=== PATIENT | female | born 1950 | race Caucasian/White ===

== ENCOUNTER → 2018-10-16 | Outpatient (CLI) | payer MEDICARE ==
--- NOTE | 2018-10-16 11:11 | Diagnostic Imaging Report ---
INDICATION: Low back pain, fall one month ago. TIME OF EXAM: 10:19 a.m. AP, both oblique as well as lateral and coned lumbosacral views of lumbar spine were obtained. Curvature and alignment of the lumbar spine is normal. Vertebral body heights and disc spaces are well-maintained. No fracture or subluxation is identified. No spondylolysis or spondylolisthesis seen. IMPRESSION: No acute bony abnormality is detected. Dictated by: Dictated on workstation # [id number]
== END ==
LOC: RAD FS 10:15
PROVIDERS: ATTEND Nurse Practitioner
DX: M54.5 Low back pain (principal); W19.XXXA Unspecified fall, initial encounter
CPT/HCPCS: 72110

== ENCOUNTER → 2018-10-24 | Outpatient (CLI) | payer MEDICARE ==
--- NOTE | 2018-10-24 10:36 | Diagnostic Imaging Report ---
PROCEDURE: MRI lumbar spine. TECHNIQUE: Multiplanar, multisequence MRI of the lumbar spine was performed without contrast. INDICATION: Low back pain as well as left leg pain and numbness. COMPARISON: No prior MRI studies are available for comparison. FINDINGS: Curvature and alignment of the lumbar spine is normal. Vertebral body heights are maintained. The marrow signal intensity is normal. No compression fracture or geographic marrow lesion is seen. There is fairly normal height and signal intensity to the lumbar intervertebral discs. Minimal degenerative change at L3-4 as well as L2-3 levels is noted with mild disc desiccation. The patient has a split spinal cord which commences at the L1 level. A thin hypointense septation extends posteriorly from the L2-3 level, splitting the thecal sac and duplicated spinal cord. The spinal cord also appears to be tethered, with the conus at approximately the L4-5 level. No definite vertebral body anomaly is seen. No spinal cord lipoma is detected. T12-L1: No central canal or neural foraminal stenosis is detected. L1-2: No central canal or neural foraminal stenosis is identified. L2-3: No central canal or neural foramina stenosis is identified. L3-4: No central canal or neural foraminal stenosis is identified. L4-5: No central canal or neural foraminal stenosis is identified. L5-S1: There is a large left-sided synovial cyst arising from left-sided facets. This measures 19 mm cephalocaudal by 9 mm AP by 12 mm transverse. This produces significant narrowing of the left lateral recess, likely impinging upon the left S1 nerve root origin. Paraspinous tissues are unremarkable. IMPRESSION: 1. 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 There is a thin septation splitting the cord and thecal sac at the L2-[address] study could be performed to evaluate whether this is osseous versus fibrous, if clinically indicated. No spinal vertebral body anomaly or evidence of spinal cord lipoma is detected. 2. Large synovial cyst arising from left-sided facet at the L5-S1 level, significantly narrowing the left lateral recess and neural foramen impinging upon the left S1 nerve root origin. Dictated by: Dictated on workstation # [id number]
== END ==
LOC: RAD 08:53
PROVIDERS: ATTEND Nurse Practitioner
DX: M48.07 Spinal stenosis, lumbosacral region (principal); M71.38 Other bursal cyst, other site
CPT/HCPCS: 72148

== ENCOUNTER → 2019-02-04 | Outpatient (CLI) | payer MEDICARE ==
--- NOTE | 2019-02-04 10:17 | Diagnostic Imaging Report ---
PROCEDURE: MRI lumbar spine. TECHNIQUE: Multiplanar, multisequence MRI of the lumbar spine was performed without contrast. INDICATION: Spinal surgery in November, now complaining of left foot drop. COMPARISON: Correlation is made with prior MRI lumbar spine study from 10/24/2018. FINDINGS: Curvature and alignment of the lumbar spine remains within normal limits. Vertebral body heights and marrow signal are normal. Fairly normal height and signal intensity to the lumbar discs is seen apart from mild desiccation at the L2-3 level, similar to prior exam. Diastematomyelia commencing at the L1 level is again seen. The hypointense septation dividing the thecal sac and spinal cord at the L2-3 level is again seen. The patient has undergone spinal surgery with apparent left hemilaminectomy at L5-S1. Previously seen synovial cyst at L5-S1 is not well-seen on today's study. There does appear to be some infiltration of the fat surrounding the left L5-S1 nerve root, narrowing the left L5-S1 neural foramen. The right neuroforamen is patent. The central canal is patent at all levels. IMPRESSION: 1. Postsurgical changes at the L5-S1 level. Previously noted left-sided synovial cyst is no longer visualized. However, there is infiltration of the fat in the left L5-S1 neural foramen. This could be fibrotic tissue. 2. Diastematomyelia, similar to examination from October 2018. Dictated by: Dictated on workstation # [id number]
== END ==
LOC: RAD 09:16
PROVIDERS: ATTEND Orthopaedic Surgery Orthopaedic Surgery of the Spine
DX: M48.061 Spinal stenosis, lumbar region without neurogenic claudication (principal); M48.8X7 Other specified spondylopathies, lumbosacral region; Q06.2 Diastematomyelia; M21.372 Foot drop, left foot; Z98.890 Other specified postprocedural states
CPT/HCPCS: 72148

== ENCOUNTER → 2019-12-01 | Outpatient (CLI) | payer MEDICARE ==
--- NOTE | 2019-12-01 15:17 | Diagnostic Imaging Report ---
PROCEDURE: MRI lumbar spine. TECHNIQUE: Multiplanar, multisequence MRI of the lumbar spine was performed without contrast. INDICATION: Status post lumbar spine surgery in September 2018. Patient now has left foot drop. COMPARISON: 02/04/2019. FINDINGS: The curvature and alignment of the lumbar spine remain within normal limits. The vertebral body heights and marrow signal are unremarkable. No geographic marrow lesion or fracture is seen. There is fairly normal height and signal intensity to the lumbar intervertebral discs apart from mild disc space narrowing and desiccation at the L2-L3 level, similar to the prior exam. The previously noted diastematomyelia commencing at L1 is again noted. The previously noted hypointense band dividing the thecal sac and spinal cord at the L2-3 level is again noted and unchanged. T12-L1: Central canal and neuroforamina are patent. L1-2: Central canal and neuroforamina are widely patent. L2-3: Central canal and neuroforamina are widely patent. L3-4: Central canal and neuroforamina are widely patent. L4-5: Central canal and neuroforamina appear patent. L5-S1: Central canal is widely patent. There continues to be some mild infiltration of fat in the left neural foramen, similar to the prior exam. Right neuroforamen is patent. Post surgical changes at the L5-S1 level are again noted. IMPRESSION: Overall stable MRI of the lumbar spine without contrast when compared with the prior study from 02/04/2019. No new abnormality is detected. Dictated by: Dictated on workstation # [id number]
== END ==
LOC: RAD 13:33
PROVIDERS: ATTEND Physician Assistant
DX: M54.5 Low back pain (principal); Z98.890 Other specified postprocedural states
CPT/HCPCS: 72148

== ENCOUNTER → 2021-02-21 | Outpatient (CLI) | payer SELFPAY ==
--- NOTE | 2021-02-21 14:27 | Diagnostic Imaging Report ---
EXAMINATION: CT calcium scoring without contrast. TECHNIQUE: Multiple contiguous axial images were obtained through the chest without the use of intravenous contrast for purposes of calcium scoring. All CT scans use one or more of the following dose optimizing techniques: automated exposure control, MA and/or KvP adjustment based on patient size and exam type or iterative reconstruction. HISTORY: Hyperlipidemia. COMPARISON: None available. FINDINGS: The calculated coronary artery calcium score is zero. The automatic score is 5.2, but this is because it included an area of streak artifact as a calcification. There is no edema or pneumonia. No pleural effusion. No pneumothorax. No suspicious nodules. Heart size is normal. No pericardial effusion. Aorta is normal in caliber. There is no axillary or supraclavicular lymphadenopathy. There is no mediastinal lymphadenopathy. Limited views of the upper abdomen are unremarkable. There are no suspicious osseous lesions. IMPRESSION: 1. Calculated coronary artery calcium score of zero. Dictated by: Dictated on workstation # [id number]
== END ==
LOC: RAD FS 10:42
PROVIDERS: ATTEND Family Medicine
DX: E78.5 Hyperlipidemia, unspecified (principal)
CPT/HCPCS: 75571

== ENCOUNTER 2021-08-05 01:41 | Emergency (ER) | payer MEDICARE ==
[~2021-08-05] VITALS: Ht 154.9 cm; Wt 51.2 kg
[2021-08-05] MEDS ORDERED: FAMOTIDINE 20MG/2ML IV (PEPCID) IV STA (01:49)
[2021-08-05] MEDS ORDERED: KETOROLAC 30 MG/ML VIAL IVP STA (01:49)
[2021-08-05] MEDS ORDERED: METOCLOPRAMIDE INJ 10 MG/2 ML (REGLAN) IVP STA (01:49)
--- NOTE | 2021-08-05 01:51 | ED Abdominal Pain ---
General Stated Complaint: ABD PAIN History of Present Illness Date Seen by Provider: Aug 05, 2021 Time Seen by Provider: 01:45 Initial Comments 71-year-old female presents with abdominal pain. She is got some nausea and had a couple episodes of vomiting. She reports her pain started around 9:30 in the evening. She reports that the only thing she is tried for it is some FiberCon. Patient reports that she has a history of having "irritable bowel syndrome" that she treats with FiberCon. She has not had a flare in a while. She reports that she has had normal stool. She denies any fever, chills. The pain is located in the right lower quadrant. She denies any urinary symptoms. Allergies and Home Medications Allergies Coded Allergies: morphine (Verified Allergy, Unknown, 08/05/21) vancomycin (Verified Allergy, Unknown, 08/05/21) Patient Home Medication List Home Medication List Reviewed: Yes Review of Systems Review of Systems Constitutional: No chills, No fever Respiratory: Denies Cough, Denies Shortness of Air Cardiovascular: Denies Chest Pain, Denies Palpitations Gastrointestinal: Abdominal Pain; Denies Constipated, Denies Diarrhea; Nausea, Vomiting Genitourinary: Denies Burning; Flank Pain (Mild occasional right-sided) Musculoskeletal: no symptoms reported Skin: no symptoms reported Psychiatric/Neurological: No Symptoms Reported Endocrine: No Symptoms Reported Physical Exam Vital Signs Vital Signs - First Documented 08/05/21 01:42 Temp 37.0 Pulse 70 Resp 16 B/P (MAP) 111/58 (75) Pulse Ox 100 O2 Delivery Room Air Capillary Refill : Height/Weight/BMI Height: '" Weight: lbs. oz. kg; BMI Method: General Appearance: other (Patient cries out in pain within can stop right and middle and visit with no signs of distress while she is visiting or answering questions) Respiratory: lungs clear, normal breath sounds Cardiovascular: normal peripheral pulses, regular rate, rhythm Gastrointestinal: soft; No distended, No guarding, No rebound; tenderness (Mild tenderness right side) Neurologic/Psychiatric: alert, normal mood/affect, oriented x 3 Skin: normal color, warm/dry Focused Exam Lactate Level 08/05/21 02:00: Lactic Acid Level 1.74 Lactic Acid Level Laboratory Tests Test 08/05/21 02:00 Lactic Acid Level 1.74 MMOL/L (0.50-2.00) Progress/Results/Core Measures Results/Orders Lab Results Laboratory Tests Test 08/05/21 01:45 08/05/21 02:00 08/05/21 02:24 Range/Units White Blood Count 9.7 4.3-11.0 10^3/uL Red Blood Count 4.01 3.80-5.11 10^6/uL Hemoglobin 12.9 11.5-16.0 g/dL Hematocrit 39 35-52 % Mean Corpuscular Volume 96 80-99 fL Mean Corpuscular Hemoglobin 32 25-34 pg Mean Corpuscular Hemoglobin Concent 33 32-36 g/dL Red Cell Distribution Width 12.3 10.0-14.5 % Platelet Count 366 130-400 10^3/uL Mean Platelet Volume 8.9 L 9.0-12.2 fL Immature Granulocyte % (Auto) 0 % Neutrophils (%) (Auto) 68 42-75 % Lymphocytes (%) (Auto) 22 12-44 % Monocytes (%) (Auto) 8 0-12 % Eosinophils (%) (Auto) 1 0-10 % Basophils (%) (Auto) 1 0-10 % Neutrophils # (Auto) 6.6 1.8-7.8 X 10^3 Lymphocytes # (Auto) 2.1 1.0-4.0 X 10^3 Monocytes # (Auto) 0.8 0.0-1.0 X 10^3 Eosinophils # (Auto) 0.1 0.0-0.3 10^3/uL Basophils # (Auto) 0.1 0.0-0.1 10^3/uL Immature Granulocyte # (Auto) 0.0 0.0-0.1 10^3/uL Sodium Level 138 135-145 MMOL/L Potassium Level 4.2 3.6-5.0 MMOL/L Chloride Level 103 98-107 MMOL/L Carbon Dioxide Level 22 21-32 MMOL/L Anion Gap 13 5-14 MMOL/L Blood Urea Nitrogen 21 H 7-18 MG/DL Creatinine 0.95 0.60-1.30 MG/DL Estimat Glomerular Filtration Rate 64 BUN/Creatinine Ratio 22 Glucose Level 153 H 70-105 MG/DL Calcium Level 9.7 8.5-10.1 MG/DL Corrected Calcium 8.5-10.1 MG/DL Total Bilirubin 0.3 0.1-1.0 MG/DL Aspartate Amino Transf (AST/SGOT) 27 5-34 U/L Alanine Aminotransferase (ALT/SGPT) 23 0-55 U/L Alkaline Phosphatase 86 40-136 U/L C-Reactive Protein < 0.30 <0.50 MG/DL Total Protein 7.0 6.4-8.2 GM/DL Albumin 4.6 H 3.2-4.5 GM/DL Lipase 61 8-78 U/L Lactic Acid Level 1.74 0.50-2.00 MMOL/L Urine Color YELLOW Urine Clarity CLOUDY Urine pH 7.5 5-9 Urine Specific [place] 1.020 1.016-1.022 Urine Protein NEGATIVE NEGATIVE Urine Glucose (UA) NEGATIVE NEGATIVE Urine Ketones 1+ H NEGATIVE Urine Nitrite NEGATIVE NEGATIVE Urine Bilirubin NEGATIVE NEGATIVE Urine Urobilinogen 0.2 < = 1.0 MG/DL Urine Leukocyte Esterase NEGATIVE NEGATIVE Urine RBC (Auto) NEGATIVE NEGATIVE Urine RBC 5-10 H /HPF Urine WBC NONE /HPF Urine Squamous Epithelial Cells NONE /HPF Urine Crystals PRESENT H /LPF Urine Amorphous Sediment LARGE JACY PHOSPHATE H /LPF Urine Bacteria NEGATIVE /HPF Urine Casts NONE /LPF Urine Mucus NEGATIVE /LPF Urine Culture Indicated NO My Orders Orders - KIRK,BREANN L DO Cbc With Automated Diff (08/05/21 01:49) Comprehensive Metabolic Panel (08/05/21 01:49) Lactic Acid Analyzer (08/05/21 01:49) Lipase (08/05/21 01:49) Ua Culture If Indicated (08/05/21 01:49) Ketorolac Injection (Toradol Injection) (08/05/21 01:49) Metoclopramide Injection (Reglan Injecti (08/05/21 01:49) Famotidine Injection (Pepcid Injection) (08/05/21 01:49) Crp Fs (08/05/21 01:49) Ct Abdomen/Pelvis Wo (08/05/21 02:40) Vital Signs/I&O 08/05/21 01:42 Temp 37.0 Pulse 70 Resp 16 B/P (MAP) 111/58 (75) Pulse Ox 100 O2 Delivery Room Air Progress Progress Note : Progress Note Patient CT shows abundant stool with some air-fluid levels and mild wall thickening consistent with enteritis. Patient's symptoms resolved with Toradol Reglan. Patient likely with some chronic constipation with an associated gastroenteritis. I will prescribe her some nausea medication. She should use some Tylenol ibuprofen as needed drink plenty of fluids and use MiraLAX. Diagnostic Imaging Diagonstic Imaging: CT Plain Films/CT/US/NM/MRI: abdomen, pelvis Comments Enteritis, abundant stool, Reviewed: Reviewed [place] Study Departure Impression Primary Impression: Enteritis Additional Impression: Constipation Qualified Codes: K59.00 - Constipation, unspecified Disposition: HOME, SELF-CARE Condition: Stable Departure-Patient Inst. Referrals: NII TURCIOS MD (PCP/Family) Primary Care Physician Patient Instructions: Constipation, Adult ED, Viral Gastroenteritis, Adult (DC) Add. Discharge Instructions: Drink plenty of fluids Recommend that you start MiraLAX 2-3 capfuls daily as directed on package Tylenol or ibuprofen as needed for pain Scripts Ondansetron (Ondansetron Odt) 4 Mg Tab.rapdis 4 MG PO Q6H PRN for NAUSEA/VOMITING, #20 TAB 0 Refills Prov: BREANN KIRK DO 08/05/21 BREANN KIRK DO Aug 05, 2021 01:51
[2021-08-05 02:06] LABS: BASOPHILS # (AUTO) 0.1 10^3/uL (0.0-0.1); BASOPHILS % (AUTO) 1 % (0-10); EOSINOPHILS # (AUTO) 0.1 10^3/uL (0.0-0.3); EOSINOPHILS % (AUTO) 1 % (0-10); HEMATOCRIT 39 % (35-52); HEMOGLOBIN 12.9 g/dL (11.5-16.0); LYMPHOCYTES # (AUTO) 2.1 X 10^3 (1.0-4.0); LYMPHOCYTES % (AUTO) 22 % (12-44); MEAN CORPUSCULAR HEMOGLOBIN 32 pg (25-34); MEAN CORPUSCULAR HGB CONC 33 g/dL (32-36); MEAN CORPUSCULAR VOLUME 96 fL (80-99); MEAN PLATELET VOLUME 8.9 fL (9.0-12.2); MONOCYTES # (AUTO) 0.8 X 10^3 (0.0-1.0); MONOCYTES % (AUTO) 8 % (0-12); NEUTROPHILS # (AUTO) 6.6 X 10^3 (1.8-7.8); NEUTROPHILS % (AUTO) 68 % (42-75); PLATELET COUNT 366 10^3/uL (130-400); WHITE BLOOD COUNT 9.7 10^3/uL (4.3-11.0)
[2021-08-05 02:35] LABS: ALANINE AMINOTRANSFERASE 23 U/L (0-55); ALBUMIN 4.6 GM/DL (3.2-4.5); ALKALINE PHOSPHATASE 86 U/L (40-136); BILIRUBIN,TOTAL 0.3 MG/DL (0.1-1.0); BUN/CREATININE RATIO 22; CALCIUM 9.7 MG/DL (8.5-10.1); CARBON DIOXIDE 22 MMOL/L (21-32); CHLORIDE 103 MMOL/L (98-107); CREATININE SERUM 0.95 MG/DL (0.60-1.30); GFR ESTIMATED 64; GLUCOSE 153 MG/DL (70-105); POTASSIUM 4.2 MMOL/L (3.6-5.0); SODIUM 138 MMOL/L (135-145)
[2021-08-05 02:36] LABS: AMORPHOUS SEDIMENT,UR LARGE AMOR PHOSPHATE /LPF; BACTERIA,URINE NEGATIVE /HPF; BILIRUBIN,URINE NEGATIVE (NEGATIVE); CLARITY,URINE CLOUDY; COLOR,URINE YELLOW; GLUCOSE, URINE (UA) NEGATIVE (NEGATIVE); KETONES,URINE 1+ (NEGATIVE); LEUKOCYTE ESTERASE ,URINE NEGATIVE (NEGATIVE); NITRITE,URINE NEGATIVE (NEGATIVE); PH,URINE 7.5 (5-9); PROTEIN,URINE NEGATIVE (NEGATIVE)
[2021-08-05 02:36] LABS: LIPASE 61 U/L (8-78)
[2021-08-05] MEDS ORDERED: ONDA4TAB11 PO (03:36)
[2021-08-05 03:38] VITALS: BP 108/52
--- NOTE | 2021-08-05 06:43 | Diagnostic Imaging Report ---
PROCEDURE: CT abdomen and pelvis without contrast. TECHNIQUE: Multiple contiguous axial images were obtained through the abdomen and pelvis without the use of intravenous contrast. Auto Exposure Controls were utilized during the CT exam to meet ALARA standards for radiation dose reduction. INDICATION: Right lower quadrant abdominal pain. COMPARISON: None. FINDINGS: The heart is unremarkable. The lung bases are clear. Calcified granulomas are seen throughout the spleen. Simple cortical cysts are seen in the left kidney, the largest measuring 2.0 cm. No hydronephrosis or renal calculi. The urinary bladder is decompressed. The liver, pancreas, and adrenal glands have a normal appearance. There is no pathologically enlarged mesenteric or retroperitoneal adenopathy. Dilated and fluid-filled loops of small bowel are seen throughout the abdomen and pelvis. A large volume of stool seen in the colon. No free fluid or free air. No acute osseous abnormalities. There is no free air, loculated collection, or adenopathy in the pelvis. IMPRESSION: 1. Dilated fluid-filled loops of small bowel throughout the abdomen and pelvis. Findings are favored to represent enteritis given the large volume of stool throughout the colon with early small bowel obstruction also possible. Recommend continued followup. Agree with overnight report. Dictated by: Dictated on workstation # [id number]
== END 2021-08-05 03:38 | disposition home or self-care (01) ==
LOC: EDUNIT# 01:41 → ER FS 01:42
DX: K52.9 Noninfective gastroenteritis and colitis, unspecified (principal); K59.00 Constipation, unspecified
CPT/HCPCS: 36415; 74176; 80053; 81000; 83605; 83690; 85025; 86141; 96374; 96375

== ENCOUNTER 2021-08-05 12:32 | Emergency (ER) | payer MEDICARE ==
[~2021-08-05] VITALS: Ht 154.9 cm; Wt 50.5 kg
[~2021-08-05 12:32] MED LIST: ONDA4TAB11 PO
[2021-08-05] MEDS ORDERED: LACTATED RINGERS 1,000 ML IV STA ×2 (12:41→13:36)
--- NOTE | 2021-08-05 12:41 | ED Abdominal Pain ---
General Stated Complaint: DEHYDRATED,VOMITTING History of Present Illness Date Seen by Provider: Aug 05, 2021 Time Seen by Provider: 12:41 Initial Comments 71-year-old female presents with vomiting and feels dehydrated. Patient was seen by me during the night last night. That time she had a CT that shows some moderate stool and an enteritis. Patient reports that she is continue to vomit today and feels like she is getting more dehydrated. Patient denies any fever chills or other systemic complaints. Patient complaining of vomiting last night but did not vomit while she was in the ER. Allergies and Home Medications Allergies Coded Allergies: morphine (Verified Allergy, Unknown, 08/05/21) vancomycin (Verified Allergy, Unknown, 08/05/21) Patient Home Medication List Home Medication List Reviewed: Yes Ondansetron (Ondansetron Odt) 4 Mg Tab.rapdis, 4 MG PO Q6H PRN for NAUSEA/VOMITING Prescribed by: BREANN KIRK on 08/05/21 0336 Review of Systems Review of Systems Constitutional: No chills, No fever Respiratory: Denies Cough, Denies Shortness of Air Cardiovascular: Denies Chest Pain Gastrointestinal: Abdominal Pain, Nausea, Vomiting Musculoskeletal: no symptoms reported Skin: no symptoms reported Psychiatric/Neurological: No Symptoms Reported Endocrine: No Symptoms Reported Hematologic/Lymphatic: No Symptoms Reported Physical Exam Vital Signs Vital Signs - First Documented 08/05/21 12:47 Temp 36.7 Pulse 82 Resp 16 B/P (MAP) 123/72 (89) O2 Delivery Room Air Capillary Refill : Height/Weight/BMI Height: '" Weight: lbs. oz. kg; 21.00 BMI Method: General Appearance: no apparent distress Respiratory: normal breath sounds, no respiratory distress Gastrointestinal: soft; No distended Extremities: normal range of motion, normal capillary refill Neurologic/Psychiatric: alert, normal mood/affect, oriented x 3 Skin: normal color, warm/dry Progress/Results/Core Measures Results/Orders Lab Results Laboratory Tests Test 08/05/21 12:50 Range/Units White Blood Count 13.5 H 4.3-11.0 10^3/uL Red Blood Count 4.23 3.80-5.11 10^6/uL Hemoglobin 13.7 11.5-16.0 g/dL Hematocrit 40 35-52 % Mean Corpuscular Volume 95 80-99 fL Mean Corpuscular Hemoglobin 32 25-34 pg Mean Corpuscular Hemoglobin Concent 34 32-36 g/dL Red Cell Distribution Width 12.4 10.0-14.5 % Platelet Count 389 130-400 10^3/uL Mean Platelet Volume 8.9 L 9.0-12.2 fL Immature Granulocyte % (Auto) 0 % Neutrophils (%) (Auto) 89 H 42-75 % Lymphocytes (%) (Auto) 6 L 12-44 % Monocytes (%) (Auto) 4 0-12 % Eosinophils (%) (Auto) 0 0-10 % Basophils (%) (Auto) 0 0-10 % Neutrophils # (Auto) 12.1 H 1.8-7.8 X 10^3 Lymphocytes # (Auto) 0.8 L 1.0-4.0 X 10^3 Monocytes # (Auto) 0.6 0.0-1.0 X 10^3 Eosinophils # (Auto) 0.0 0.0-0.3 10^3/uL Basophils # (Auto) 0.0 0.0-0.1 10^3/uL Immature Granulocyte # (Auto) 0.1 0.0-0.1 10^3/uL Neutrophils % (Manual) 89 % Lymphocytes % (Manual) 5 % Monocytes % (Manual) 6 % Sodium Level 136 135-145 MMOL/L Potassium Level 4.3 3.6-5.0 MMOL/L Chloride Level 103 98-107 MMOL/L Carbon Dioxide Level 21 21-32 MMOL/L Anion Gap 12 5-14 MMOL/L Blood Urea Nitrogen 21 H 7-18 MG/DL Creatinine 0.94 0.60-1.30 MG/DL Estimat Glomerular Filtration Rate 64 BUN/Creatinine Ratio 22 Glucose Level 140 H 70-105 MG/DL Calcium Level 9.6 8.5-10.1 MG/DL Corrected Calcium 8.5-10.1 MG/DL Total Bilirubin 0.3 0.1-1.0 MG/DL Aspartate Amino Transf (AST/SGOT) 26 5-34 U/L Alanine Aminotransferase (ALT/SGPT) 222 H 0-55 U/L Alkaline Phosphatase 94 40-136 U/L Total Protein 7.3 6.4-8.2 GM/DL Albumin 4.8 H 3.2-4.5 GM/DL Lipase 52 8-78 U/L My Orders Orders - KIRK,BREANN L DO Cbc With Automated Diff (08/05/21 12:41) Comprehensive Metabolic Panel (08/05/21 12:41) Lipase (08/05/21 12:41) Ondansetron Injection (Zofran Injectio (08/05/21 12:45) Lactated Ringers (Lr 1000 Ml Iv Solution (08/05/21 12:41) Abdomen Flat & Upright/Decub (08/05/21 12:41) Manual Differential (08/05/21 12:50) Lactated Ringers (Lr 1000 Ml Iv Solution (08/05/21 13:36) Medications Given in ED Current Medications Medications Dose Ordered Sig/Neal Route Start Time Stop Time Status Last Admin Dose Admin Ondansetron HCl 4 mg ONCE ONCE IVP 08/05/21 12:45 08/05/21 12:46 DC 08/05/21 12:53 4 MG Vital Signs/I&O 08/05/21 12:47 Temp 36.7 Pulse 82 Resp 16 B/P (MAP) 123/72 (89) O2 Delivery Room Air Progress Progress Note : Progress Note pt with no episodes of vomiting in the ER. Pt was given 2 L LR, pt was offered attempted admission but declined. Diagnostic Imaging Diagonstic Imaging: Xray Plain Films/CT/US/NM/MRI: abdomen Comments Date of Exam:08/05/21 ABDOMEN FLAT & UPRIGHT/DECUB HISTORY: Vomiting COMPARISON: 08/05/2021 TECHNIQUE: Supine and upright frontal views of the abdomen FINDINGS: There are few mildly prominent loops of small bowel in the midabdomen and left upper quadrant. No high-grade bowel distention is appreciated. There is no large collection of free air. Phleboliths are seen in the pelvis. IMPRESSION: 1. Few mildly prominent loops of small bowel, may represent a mild ileus. No high-grade bowel distention is seen. Departure Impression Primary Impression: Enteritis Disposition: 01 HOME, SELF-CARE Condition: Stable Departure-Patient Inst. Referrals: NII TURCIOS MD (PCP/Family) Primary Care Physician Patient Instructions: CLEAR LIQUID DIET ADULT/CHILD, Viral Gastroenteritis, Adult (DC) Add. Discharge Instructions: Clear liquid diet for 24-36 hrs then slowly advance Follow up with pcp next week BREANN KIRK DO Aug 05, 2021 12:41
[2021-08-05] MEDS ORDERED: ONDANSETRON 4 MG/2 ML (SDV) Z0FRAN IVP ONE (12:45)
[2021-08-05 12:53] LABS: BASOPHILS % (AUTO) 0 % (0-10); EOSINOPHILS % (AUTO) 0 % (0-10); HEMATOCRIT 40 % (35-52); HEMOGLOBIN 13.7 g/dL (11.5-16.0); LYMPHOCYTES # (AUTO) 0.8 X 10^3 (1.0-4.0); LYMPHOCYTES % (AUTO) 6 % (12-44); MEAN CORPUSCULAR HEMOGLOBIN 32 pg (25-34); MEAN CORPUSCULAR HGB CONC 34 g/dL (32-36); MEAN CORPUSCULAR VOLUME 95 fL (80-99); MEAN PLATELET VOLUME 8.9 fL (9.0-12.2); MONOCYTES # (AUTO) 0.6 X 10^3 (0.0-1.0); MONOCYTES % (AUTO) 4 % (0-12); NEUTROPHILS # (AUTO) 12.1 X 10^3 (1.8-7.8); NEUTROPHILS % (AUTO) 89 % (42-75); PLATELET COUNT 389 10^3/uL (130-400); WHITE BLOOD COUNT 13.5 10^3/uL (4.3-11.0)
[2021-08-05 13:08] LABS: LYMPHOCYTES % (MANUAL) 5 %; MONOCYTES % (MANUAL) 6 %; NEUTROPHILS % (MANUAL) 89 %
--- NOTE | 2021-08-05 13:08 | Diagnostic Imaging Report ---
HISTORY: Vomiting COMPARISON: 08/05/2021 TECHNIQUE: Supine and upright frontal views of the abdomen FINDINGS: There are few mildly prominent loops of small bowel in the midabdomen and left upper quadrant. No high-grade bowel distention is appreciated. There is no large collection of free air. Phleboliths are seen in the pelvis. IMPRESSION: 1. Few mildly prominent loops of small bowel, may represent a mild ileus. No high-grade bowel distention is seen. Dictated by: Dictated on workstation # [id number]
[2021-08-05 13:13] LABS: ALANINE AMINOTRANSFERASE 222 U/L (0-55); ALKALINE PHOSPHATASE 94 U/L (40-136); BILIRUBIN,TOTAL 0.3 MG/DL (0.1-1.0); BUN/CREATININE RATIO 22; CALCIUM 9.6 MG/DL (8.5-10.1); CARBON DIOXIDE 21 MMOL/L (21-32); CHLORIDE 103 MMOL/L (98-107); CREATININE SERUM 0.94 MG/DL (0.60-1.30); GFR ESTIMATED 64; GLUCOSE 140 MG/DL (70-105); POTASSIUM 4.3 MMOL/L (3.6-5.0); SODIUM 136 MMOL/L (135-145)
[2021-08-05 13:14] LABS: ALBUMIN 4.8 GM/DL (3.2-4.5); LIPASE 52 U/L (8-78); TOTAL PROTEIN 7.3 GM/DL (6.4-8.2)
[2021-08-05 14:46] VITALS: BP 126/71
== END 2021-08-05 14:46 | disposition home or self-care (01) ==
LOC: EDUNIT# 12:32 → ER FS 12:33
DX: K52.9 Noninfective gastroenteritis and colitis, unspecified (principal)
CPT/HCPCS: 36415; 74019; 80053; 83690; 85007; 85027; 96361; 96374

== ENCOUNTER → 2022-09-21 | Outpatient (CLI) | payer MEDICARE ==
--- NOTE | 2022-09-21 16:52 | Diagnostic Imaging Report ---
EXAMINATION: Left wrist two view. HISTORY: Wrist pain and swelling. COMPARISON: None available. FINDINGS: Alignment is normal. No fracture is seen. Joint spaces are normal. IMPRESSION: No fracture is seen in the left wrist. Dictated by: Dictated on workstation # [id number]
== END ==
LOC: RAD FS 11:16
PROVIDERS: ATTEND Family Medicine
DX: M25.532 Pain in left wrist (principal)
CPT/HCPCS: 73100